=== PATIENT | female | born 1990 | race Caucasian/White ===

== ENCOUNTER 2019-10-31 02:39 | Emergency (ER) | payer MEDICAID ==
[~2019-10-31] VITALS: Ht 162.6 cm; Wt 54.4 kg
--- NOTE | 2019-10-31 03:56 | NUR ---
PT PRESENTED TO THE ER WITH A C/O SKIN LESIONS ON R FA. PT STATED THAT IT STARTED WITH A INSECT BITE A WEEK AGO AND IS NOW IS MULTIPLE LESIONS ON THE RT FA.
[2019-10-31] MEDS ORDERED: IBUPROFEN 600 MG TABLET PO ONE ×2 (03:59→04:30)
--- NOTE | 2019-10-31 04:59 | NUR ---
TRIPLE ANTIBIOTIC APPLIED, NON ADHERENT DRSG APPLIED AND WRAPPED WITH KERLEX
--- NOTE | 2019-10-31 05:00 | NUR ---
Patient discharged to home in stable condition. Written and verbal after care instructions given. Patient verbalizes understanding of instruction AND RX. PT AMBULATED OUT WITH A STEADY GAIT. PT REC'D A FEW EXTRA BANDAGES. VSS.
[2019-10-31 05:02] VITALS: BP 118/75
== END 2019-10-31 05:03 | disposition home or self-care (01) ==
LOC: ER 02:44
DX: A49.02 Methicillin resistant Staphylococcus aureus infection, unspecified site (principal); J45.909 Unspecified asthma, uncomplicated; F17.200 Nicotine dependence, unspecified, uncomplicated